=== PATIENT | female | born 1935 | race Caucasian/White ===

== ENCOUNTER 2021-02-04 22:10 | Emergency (ER) | payer MEDICARE, MEDICAID ==
[2021-02-04] MEDS ORDERED: LIDOCAINE/EPI/TETRACAINE TOPICAL GEL 3 ML. TP ONE (23:00)
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
--- NOTE | 2021-02-05 02:10 | RAD ---
CT HEAD/BRAIN WO Date: 02/04/2021 1:14 AM Clinical Indication: Reason: fall, scalp lac / Spl. Instructions: / History: Comparison: None. Technique: 5 mm axial tomographic images were obtained of the head without contrast. These were view ed on brain and bone windows. One or more of the following dose reduction techniques were utilized: A utomated exposure control (AEC), Adjustment of mA and/or kV according to patient size, Use of iterati ve reconstruction technique such as ASiR, CT scan done according to ALARA and image gently/image corado ly Findings: Mild generalized cerebral and cerebellar volume loss. Moderate nonspecific periventricular hypoattenu ation, most commonly seen with chronic small vessel ischemic disease. Calcified atherosclerosis of th e bilateral cavernous and paraclinoid internal carotid arteries and intracranial vertebral arteries. No intra- or extra-axial mass or fluid collection. No acute hemorrhage. The ventricles are normal in size, shape, and morphology. The kenyon-white matter junction is normal. The subarachnoid cisterns are patent. The visualized paranasal sinuses are normal. The visualized portions of the orbits and globes are no rmal. The mastoid air cells are clear. The remediation technician topogram shows no lytic lesion or fracture. Right parietal scalp swelling. Impression: No acute intracranial process. Right parietal scalp swelling. Mild cerebral volume loss. Moderate chronic small vessel ischemic disease. Electronically signed by: Raj Kolb MD (02/05/2021 2:08 AM) [facility]
[2021-02-05] MEDS ORDERED: ACETAMINOPHEN 325 MG TABLET PO ONE (02:42)
--- NOTE | 2021-02-05 03:57 | RAD ---
XR FEMUR_RIGHT, XR HIP (WITH OR WITHOUT PELVIS) RIGHT 1 VIEW DATE: 02/05/2021 1:11 AM INDICATION: Reason: pain / Spl. Instructions: / History: COMPARISON: None. FINDINGS: Tiny cortical irregularity along the lateral aspect of the right greater trochanter. Hip joint is congruent. Atherosclerotic vascular calcifications. IMPRESSION: Tiny cortical irregularity along the lateral aspect of the right greater trochanter, which could repr esent a nondisplaced fracture. Electronically signed by: Raj Kolb MD (02/05/2021 3:54 AM) [facility]
== END 2021-02-05 02:45 | disposition home or self-care (01) ==
LOC: ER 22:10
DX: S01.01XA Laceration without foreign body of scalp, initial encounter (principal); M25.551 Pain in right hip; M79.651 Pain in right thigh; W18.39XA Other fall on same level, initial encounter; Y93.89 Activity, other specified; Y92.89 Other specified places as the place of occurrence of the external cause; Y99.8 Other external cause status
CPT/HCPCS: 12001; 12002; 70450; 73501; 73552; 99284-25